=== PATIENT | female | born 1940 | race Two or more races ===

== ENCOUNTER 2022-10-17 09:22 | Emergency (ER) | payer OTHER ==
[~2022-10-17] VITALS: Ht 152.4 cm; Wt 62.6 kg
== END 2022-10-17 11:38 | disposition home or self-care (01) ==
LOC: ER 09:22
DX: S29.8XXA Other specified injuries of thorax, initial encounter (principal); W18.39XA Other fall on same level, initial encounter; Y93.79 Activity, other specified sports and athletics; Y92.018 Other place in single-family (private) house as the place of occurrence of the external cause; Z88.0 Allergy status to penicillin; S49.81XA Other specified injuries of right shoulder and upper arm, initial encounter

== ENCOUNTER 2024-10-01 08:40 | Emergency (ER) | payer OTHER ==
[~2024-10-01] VITALS: Ht 152.4 cm; Wt 53.1 kg
[2024-10-01] MEDS ORDERED: RINGERS SOLUTION,LACTATED 500 ML IV STA (09:59)
[2024-10-01] MEDS ORDERED: FAMOtidine 10 MG/ML (4ML VIAL) IV STA (10:00)
[2024-10-01] MEDS ORDERED: ONDANSETRON HCL 2 MG/ML VIAL IV ONE (10:00)
[2024-10-01] MEDS ORDERED: ONDANSETRON HCL 2 MG/ML VIAL ONE (10:07)
[2024-10-01] MEDS ORDERED: FAMOTIDINE/PF 20 MG/2 ML VIAL ONE (10:07)
[2024-10-01 10:31] LABS: HEMATOCRIT 35.5 % (36.0-45.00); HEMOGLOBIN 11.8 g/dL (12.0-15.00); MEAN CELL VOLUME 91.8 fL (80.00-100.00); MEAN CORPUSCULAR HEMOGLOBIN 30.5 pg (27.00-32.0); MEAN CORPUSCULAR HGB CONC 33.2 g/dl (32.0-36.0); PLATELET COUNT 154 K/uL (150-450); RED BLOOD COUNT 3.86 M/uL (4.00-6.00); RED CELL DISTRIBUTION WIDTH 13.7 % (11.5-14.5)
[2024-10-01 10:38] LABS: PH,URINE 5.5 (5.0-8.0); URINE APPEARANCE Clear; URINE BILIRRUBIN Negative (NEGATIVE); URINE BLOOD Negative; URINE COLOR Yellow; URINE GLUCOSE Negative (NEGATIVE); URINE KETONE Negative (NEGATIVE); URINE LEUKOCYTE Small; URINE NITRATE Positive; URINE PROTEIN Negative (NEGATIVE); URINE UROBILINOGEN 0.2 E.U./dl
[2024-10-01 10:42] LABS: URINE EPITHELIAL CELLS 11.2 uL (0.0-38.8); URINE WBC 79.7 uL (0.0-23.2)
[2024-10-01 10:49] LABS: URINE BACTERIA > 9821.5 uL (0.0-1933)
[2024-10-01 11:05] LABS: CALCIUM 8.8 mg/dL (8.5-10.1); CREATININE SERUM 0.79 mg/dL (0.55-1.02); GFR 69.33; POTASSIUM 3.75 mEq/L (3.5-5.1)
== END 2024-10-01 12:51 | disposition home or self-care (01) ==
LOC: ER 08:41
PROVIDERS: General Practice
DX: N39.0 Urinary tract infection, site not specified (principal); R11.10 Vomiting, unspecified; Z88.0 Allergy status to penicillin
CPT/HCPCS: 36415; 96365; 99282; J2405; J3490